=== PATIENT | male | born 1965 | race Hispanic/Latino ===

== ENCOUNTER 2024-09-06 23:55 | Inpatient (IN) | payer BC, MEDICAID ==
[~2024-09-06] VITALS: Ht 172.7 cm; Wt 79.7 kg
[2024-09-07] VITALS (8 sets, daily range): BP systolic 128–164; BP diastolic 66–83; PULSE 77–100; RESP 16–19; TEMP 97.6–97.9; O2SAT 98–100
[2024-09-07 01:11] LABS: BASOPHILS # (AUTO) 0.06 K/uL (0.00-0.20); BASOPHILS % (AUTO) 0.3 % (0.0-5.0); EOSINOPHILS # (AUTO) 0.02 K/uL (0.00-0.70); EOSINOPHILS % (AUTO) 0.1 % (0.0-8.0); HEMATOCRIT 24.6 % (42-54); IMMATURE GRANULOCYTE ABSOLUTE 0.32 K/uL (0-1); LYMPHOCYTES # (AUTO) 1.5 K/uL (1.0-4.8); LYMPHOCYTES % (AUTO) 6.9 % (21.0-51.0); MEAN CORPUSCULAR HEMOGLOBIN 27.3 pg (27.0-33.0); MEAN CORPUSCULAR HGB CONC 34.1 g/dL (32.0-36.0); MEAN CORPUSCULAR VOLUME 79.9 fL (79-99); MONOCYTES # (AUTO) 1.2 K/uL (0.1-1.0); MONOCYTES % (AUTO) 5.6 % (3.0-13.0); NEUTROPHILS # (AUTO) 18.7 K/uL (1.8-7.7); NEUTROPHILS % (AUTO) 85.6 % (40.0-77.0); PLATELET COUNT (AUTO) 544 K/uL (130-400); RED BLOOD CELL COUNT(AUTO) 3.08 MIL/uL (4.50-6.20); RED CELL DISTRIBUTION WIDTH 14.5 % (11.0-15.5); WHITE BLOOD COUNT (AUTO) 21.8 K/uL (4.8-10.8)
[2024-09-07 01:12] LABS: CREATININE 1.7 mg/dL (0.5-1.3); POTASSIUM 4.6 mmol/L (3.5-5.1)
[2024-09-07 02:19] LABS: ERYTHROCYTE SEDIMENTATION RATE 101 MM/HR (0-20)
[2024-09-07] MEDS: ondanSETRON 4MG INJ IVP ONE (02:35)
[2024-09-07] MEDS: INSULIN humuLIN R 100 UNIT/ML 3ML IV ONE (02:35)
[2024-09-07] MEDS: VANCOMYCIN KIT 1 GM/250 ML IV.KIT IV ONE (02:36)
[2024-09-07] MEDS: 0.9%NACL 1000ML 1,000 ML IV ONE (02:36)
[2024-09-07] MEDS: morPHINE 2 MG SYG IVP ONE (02:36)
[2024-09-07] MEDS ORDERED: DEXTROSE 50%-WATER 50 ML DISP.SYRIN IV PRN ×2 (03:30→22:30)
[2024-09-07] MEDS ORDERED: PoTASSium chloRIDE 20MEQ/100ML 100 ML IV PRN (03:30)
[2024-09-07] MEDS ORDERED: PoTASSium chl 10% ELIXIR 20MEQ 20 MEQ/15 ML UDCUP PO PRN (03:30)
[2024-09-07] MEDS ORDERED: VANCOMYCIN PROTOCOL PER PHARMACY IV PRN (03:30)
[2024-09-07] MEDS ORDERED: acetaMINOPHEN 325 MG TAB PO PRN ×2 (03:30)
[2024-09-07] MEDS ORDERED: GLUCAGON 1MG KIT 1 MG ML IM PRN ×2 (03:30→22:30)
[2024-09-07] MEDS: INSULIN humuLIN R 100 UNIT/ML 3ML SQ SCH (03:30)
[2024-09-07] MEDS ORDERED: PoTASSium chloRIDE 20MEQ ER 20 MEQ ERTAB PO PRN (03:30)
[2024-09-07] MEDS: 0.9%NACL 1000ML 1,000 ML IV SCH (04:05)
[2024-09-07] MEDS: ZOSYN 3.375GM+NS 50ML 50 ML IV SCH (04:05)
[2024-09-07] MEDS: ZOSYN 3.375GM +NS 50ML IVPB ONE (04:05)
[2024-09-07 05:55] LABS: APPEARANCE,URINE CLEAR (CLEAR); BILIRUBIN,URINE NEGATIVE (NEGATIVE); COLOR,URINE LIGHT-YELLOW (YELLOW); GLUCOSE, URINE (UA) >=1000 mg/dL (NEGATIVE); KETONES,URINE NEGATIVE (NEGATIVE); LEUKOCYTE ESTERASE ,URINE NEGATIVE Leu/uL (NEGATIVE); NITRATE,URINE NEGATIVE (NEGATIVE); OCCULT BLOOD,URINE SMALL (NEGATIVE); PH,URINE 5.5 (5.0-8.0); PROTEIN,URINE 50 mg/dL (NEGATIVE); UROBILINOGEN,URINE 0.2 mg/dL (0.2-1.0)
[2024-09-07 06:02] LABS: ADD UA MICROSCOPIC YES
[2024-09-07 06:17] LABS: MUCUS,URINE RARE LPF (None Seen)
[2024-09-07 07:04] LABS: BASOPHILS # (AUTO) 0.05 K/uL (0.00-0.20); BASOPHILS % (AUTO) 0.3 % (0.0-5.0); EOSINOPHILS # (AUTO) 0.12 K/uL (0.00-0.70); EOSINOPHILS % (AUTO) 0.7 % (0.0-8.0); HEMATOCRIT 25.7 % (42-54); LYMPHOCYTES # (AUTO) 1.7 K/uL (1.0-4.8); MEAN CORPUSCULAR HEMOGLOBIN 26.9 pg (27.0-33.0); MEAN CORPUSCULAR HGB CONC 32.7 g/dL (32.0-36.0); MEAN CORPUSCULAR VOLUME 82.4 fL (79-99); MONOCYTES # (AUTO) 0.9 K/uL (0.1-1.0); MONOCYTES % (AUTO) 4.9 % (3.0-13.0); NEUTROPHILS # (AUTO) 14.4 K/uL (1.8-7.7); NEUTROPHILS % (AUTO) 83.5 % (40.0-77.0); PLATELET COUNT (AUTO) 429 K/uL (130-400); RED BLOOD CELL COUNT(AUTO) 3.12 MIL/uL (4.50-6.20); RED CELL DISTRIBUTION WIDTH 14.7 % (11.0-15.5); WHITE BLOOD COUNT (AUTO) 17.3 K/uL (4.8-10.8)
[2024-09-07 07:13] LABS: BILIRUBIN,TOTAL 0.6 mg/dL (0.2-1.0); CREATININE 1.3 mg/dL (0.5-1.3); MAGNESIUM 1.8 mg/dL (1.80-2.40); POTASSIUM 3.9 mmol/L (3.5-5.1); TOTAL PROTEIN, SERUM 6.7 g/dL (6.0-8.3)
[2024-09-07] MEDS: FAMOTIDINE 20MG TAB PO SCH (09:55)
[2024-09-07] MEDS: morPHINE 2 MG SYG IV PRN (11:02)
[2024-09-07] MEDS: VANCOMYCIN 750MG VIAL IVPB SCH (12:46)
[2024-09-07] MEDS: GABApentin 100 MG CAPSULE PO SCH (14:00)
[2024-09-07] MEDS: simVASTatin 10 MG TABLET PO SCH (21:54)
[2024-09-08] VITALS (8 sets, daily range): BP systolic 135–164; BP diastolic 67–89; PULSE 67–83; RESP 18–20; TEMP 97.6–98.1; O2SAT 98–100
[2024-09-08 03:27] LABS: HEMOGLOBIN A1C 11.9 % (4.0-6.0)
[2024-09-08 03:34] LABS: ALBUMIN 1.9 g/dL (3.5-5.0); BILIRUBIN,TOTAL 0.3 mg/dL (0.2-1.0); CREATININE 1.3 mg/dL (0.5-1.3); MAGNESIUM 1.7 mg/dL (1.80-2.40); POTASSIUM 4.2 mmol/L (3.5-5.1); TOTAL PROTEIN, SERUM 6.4 g/dL (6.0-8.3)
[2024-09-08 03:37] LABS: HEMATOCRIT 25.6 % (42-54); MEAN CORPUSCULAR HEMOGLOBIN 27.2 pg (27.0-33.0); MEAN CORPUSCULAR HGB CONC 33.2 g/dL (32.0-36.0); MEAN CORPUSCULAR VOLUME 82.1 fL (79-99); RED BLOOD CELL COUNT(AUTO) 3.12 MIL/uL (4.50-6.20); RED CELL DISTRIBUTION WIDTH 14.6 % (11.0-15.5); WHITE BLOOD COUNT (AUTO) 10.1 K/uL (4.8-10.8)
[2024-09-08] MEDS: INSULIN humuLIN R 100 UNIT/ML 3ML SQ SCH (06:16)
[2024-09-08] MEDS: ASPIRIN 81 MG EC TAB PO SCH (09:42)
[2024-09-08] MEDS: LISINOPRIL 2.5 MG TABLET PO SCH (09:43)
[2024-09-08] MEDS ORDERED: LISI5TAB21 PO (18:47)
[2024-09-08] MEDS ORDERED: SIMV10TA97 PO (18:47)
[2024-09-08] MEDS ORDERED: METF-446 PO (18:47)
[2024-09-08] MEDS ORDERED: INSU3INS3 SQ (18:47)
[2024-09-08] MEDS ORDERED: INSU100C6 SQ (18:47)
[2024-09-08] MEDS ORDERED: MUPI15CR12 TP (18:47)
[2024-09-09] VITALS (9 sets, daily range): BP systolic 129–182; BP diastolic 70–91; PULSE 60–76; RESP 16–19; TEMP 96.6–98.3; O2SAT 100
[2024-09-09] MEDS: ondanSETRON 4MG INJ IV PRN (12:54)
[2024-09-10] VITALS (17 sets, daily range): BP systolic 120–163; BP diastolic 54–84; PULSE 58–97; RESP 15–19; TEMP 97.3–98.2; O2SAT 100
[2024-09-10] MEDS ORDERED: FENTanyl CITRate PF 50 MCG/1 ML 2ML VIAL ONE (06:59)
[2024-09-10] MEDS ORDERED: MIDAZOLAM HCL 1 MG/ML 2ML VIAL ONE (06:59)
[2024-09-10] MEDS ORDERED: proPOFol 10 MG/ML 20ML VIAL IV ONE ×2 (06:59→07:46)
[2024-09-10] MEDS: BUPIvacaine/PF 0.5% 30ML VIAL ONE (07:11)
[2024-09-10] MEDS: LIDOCAINE HCL 1% 20 ML VIAL ONE (07:11)
[2024-09-10] MEDS ORDERED: GLYCOPYRROLATE 0.2 MG/ML 5 ML VIAL ONE (08:05)
[2024-09-10 15:55] LABS: BASOPHILS # (AUTO) 0.03 K/uL (0.00-0.20); BASOPHILS % (AUTO) 0.3 % (0.0-5.0); EOSINOPHILS # (AUTO) 0.12 K/uL (0.00-0.70); EOSINOPHILS % (AUTO) 1.3 % (0.0-8.0); IMMATURE GRANULOCYTE ABSOLUTE 0.04 K/uL (0-1); LYMPHOCYTES # (AUTO) 1.7 K/uL (1.0-4.8); LYMPHOCYTES % (AUTO) 18.2 % (21.0-51.0); MEAN CORPUSCULAR HEMOGLOBIN 26.9 pg (27.0-33.0); MEAN CORPUSCULAR HGB CONC 31.3 g/dL (32.0-36.0); MEAN CORPUSCULAR VOLUME 85.8 fL (79-99); MONOCYTES # (AUTO) 0.4 K/uL (0.1-1.0); MONOCYTES % (AUTO) 4.5 % (3.0-13.0); NEUTROPHILS # (AUTO) 6.9 K/uL (1.8-7.7); NEUTROPHILS % (AUTO) 75.3 % (40.0-77.0); PLATELET COUNT (AUTO) 451 K/uL (130-400); RED BLOOD CELL COUNT(AUTO) 2.68 MIL/uL (4.50-6.20); RED CELL DISTRIBUTION WIDTH 14.7 % (11.0-15.5); WHITE BLOOD COUNT (AUTO) 9.1 K/uL (4.8-10.8)
[2024-09-10 16:04] LABS: CREATININE 1.1 mg/dL (0.5-1.3); MAGNESIUM 1.8 mg/dL (1.80-2.40)
[2024-09-10] MEDS: hydroMORPHone 0.5 MG SYG (0.5MG/0.5ML) IVP PRN (19:50)
[2024-09-11] VITALS (7 sets, daily range): BP systolic 145–166; BP diastolic 69–88; PULSE 62–96; RESP 16–18; TEMP 97.6–98.3; O2SAT 98–99
[2024-09-11 04:48] LABS: BASOPHILS # (AUTO) 0.04 K/uL (0.00-0.20); BASOPHILS % (AUTO) 0.4 % (0.0-5.0); EOSINOPHILS # (AUTO) 0.15 K/uL (0.00-0.70); EOSINOPHILS % (AUTO) 1.6 % (0.0-8.0); IMMATURE GRANULOCYTE ABSOLUTE 0.04 K/uL (0-1); LYMPHOCYTES # (AUTO) 2.1 K/uL (1.0-4.8); LYMPHOCYTES % (AUTO) 22.2 % (21.0-51.0); MEAN CORPUSCULAR HEMOGLOBIN 27.3 pg (27.0-33.0); MEAN CORPUSCULAR HGB CONC 32.3 g/dL (32.0-36.0); MEAN CORPUSCULAR VOLUME 84.6 fL (79-99); MONOCYTES # (AUTO) 0.5 K/uL (0.1-1.0); MONOCYTES % (AUTO) 5.6 % (3.0-13.0); NEUTROPHILS # (AUTO) 6.5 K/uL (1.8-7.7); NEUTROPHILS % (AUTO) 69.8 % (40.0-77.0); PLATELET COUNT (AUTO) 385 K/uL (130-400); RED CELL DISTRIBUTION WIDTH 14.5 % (11.0-15.5); WHITE BLOOD COUNT (AUTO) 9.3 K/uL (4.8-10.8)
[2024-09-11 04:56] LABS: BILIRUBIN,TOTAL 0.3 mg/dL (0.2-1.0); CREATININE 1.4 mg/dL (0.5-1.3); MAGNESIUM 1.7 mg/dL (1.80-2.40); POTASSIUM 4.3 mmol/L (3.5-5.1); TOTAL PROTEIN, SERUM 6.3 g/dL (6.0-8.3)
[2024-09-11 11:47] LABS: HEMATOCRIT 22.2 % (42-54)
[2024-09-11] MEDS: MAGNESIUM 2GM PREMIX 50ML 50 ML IV PRN (12:26)
[2024-09-11] MEDS: IRON sUCROse COMPLEX 100 MG/5 ML VIAL IV ONE (13:49)
[2024-09-11] MEDS: INSULIN GLARgine 100 UNITS/ML 10 ML VIAL SQ ONE (20:21)
[2024-09-12] VITALS (9 sets, daily range): BP systolic 153–181; BP diastolic 62–94; PULSE 65–81; RESP 18–20; TEMP 97.6–98.3; O2SAT 99
[2024-09-12 05:24] LABS: BASOPHILS # (AUTO) 0.03 K/uL (0.00-0.20); BASOPHILS % (AUTO) 0.4 % (0.0-5.0); EOSINOPHILS # (AUTO) 0.16 K/uL (0.00-0.70); EOSINOPHILS % (AUTO) 2.2 % (0.0-8.0); HEMATOCRIT 21.5 % (42-54); IMMATURE GRANULOCYTE ABSOLUTE 0.05 K/uL (0-1); LYMPHOCYTES # (AUTO) 1.6 K/uL (1.0-4.8); LYMPHOCYTES % (AUTO) 21.4 % (21.0-51.0); MEAN CORPUSCULAR HEMOGLOBIN 27.2 pg (27.0-33.0); MEAN CORPUSCULAR VOLUME 82.4 fL (79-99); MONOCYTES # (AUTO) 0.5 K/uL (0.1-1.0); MONOCYTES % (AUTO) 6.2 % (3.0-13.0); NEUTROPHILS # (AUTO) 5.1 K/uL (1.8-7.7); NEUTROPHILS % (AUTO) 69.1 % (40.0-77.0); PLATELET COUNT (AUTO) 376 K/uL (130-400); RED BLOOD CELL COUNT(AUTO) 2.61 MIL/uL (4.50-6.20); RED CELL DISTRIBUTION WIDTH 14.4 % (11.0-15.5); WHITE BLOOD COUNT (AUTO) 7.4 K/uL (4.8-10.8)
[2024-09-12 05:42] LABS: ALBUMIN 2.1 g/dL (3.5-5.0); BILIRUBIN,TOTAL 0.3 mg/dL (0.2-1.0); CREATININE 1.2 mg/dL (0.5-1.3); POTASSIUM 4.3 mmol/L (3.5-5.1); TOTAL PROTEIN, SERUM 6.6 g/dL (6.0-8.3)
[2024-09-12] MEDS: CYANOCOBALAMIN (VITAMIN B-12) 1,000 MCG TABLET PO SCH (09:55)
[2024-09-12] MEDS: FOLic ACID 1 MG TABLET PO SCH (09:56)
[2024-09-12] MEDS: IRON sUCROse COMPLEX 100 MG/5 ML VIAL IV ONE (11:07)
[2024-09-13 01:00] VITALS: BP 170/75
[2024-09-13] MEDS: hydrALAZine 20MG/ML VIAL IV PRN (01:32)
[2024-09-13 02:32] VITALS: BP 161/70
[2024-09-13 04:00] VITALS: BP 159/73; PULSE 90; RESP 19; TEMP 98.6
[2024-09-13 05:30] LABS: BASOPHILS # (AUTO) 0.03 K/uL (0.00-0.20); BASOPHILS % (AUTO) 0.3 % (0.0-5.0); EOSINOPHILS % (AUTO) 2.2 % (0.0-8.0); HEMATOCRIT 24.4 % (42-54); IMMATURE GRANULOCYTE ABSOLUTE 0.06 K/uL (0-1); LYMPHOCYTES # (AUTO) 1.8 K/uL (1.0-4.8); LYMPHOCYTES % (AUTO) 19.3 % (21.0-51.0); MEAN CORPUSCULAR HEMOGLOBIN 26.2 pg (27.0-33.0); MEAN CORPUSCULAR HGB CONC 31.1 g/dL (32.0-36.0); MEAN CORPUSCULAR VOLUME 84.1 fL (79-99); MONOCYTES # (AUTO) 0.5 K/uL (0.1-1.0); MONOCYTES % (AUTO) 5.6 % (3.0-13.0); NEUTROPHILS # (AUTO) 6.6 K/uL (1.8-7.7); NEUTROPHILS % (AUTO) 71.9 % (40.0-77.0); PLATELET COUNT (AUTO) 501 K/uL (130-400); RED CELL DISTRIBUTION WIDTH 14.8 % (11.0-15.5); WHITE BLOOD COUNT (AUTO) 9.2 K/uL (4.8-10.8)
[2024-09-13 05:53] LABS: ALBUMIN 2.5 g/dL (3.5-5.0); BILIRUBIN,TOTAL 0.4 mg/dL (0.2-1.0); CREATININE 1.5 mg/dL (0.5-1.3); MAGNESIUM 1.9 mg/dL (1.80-2.40); POTASSIUM 4.2 mmol/L (3.5-5.1); TOTAL PROTEIN, SERUM 7.6 g/dL (6.0-8.3)
[2024-09-13 08:00] VITALS: BP 171/82; PULSE 89; RESP 18; TEMP 97.7; O2SAT 99
[2024-09-13 09:14] VITALS: BP 153/74
[2024-09-13 12:00] VITALS: BP 170/82; PULSE 78; RESP 18; TEMP 97.8
[2024-09-14] MEDS ORDERED: FAMO20TA8 PO (22:33)
[2024-09-14] MEDS ORDERED: LISI2.5T13 PO (22:33)
[2024-09-14] MEDS ORDERED: GABA-529 PO (22:33)
[2024-09-14] MEDS ORDERED: LISI10TA24 PO (22:33)
[2024-09-14] MEDS ORDERED: ONDA-104 PO (22:33)
[2024-09-14] MEDS ORDERED: LACT10SO75 PO (22:33)
[2024-09-14] MEDS ORDERED: FOLI1 PO (22:33)
[2024-09-14] MEDS ORDERED: INSU3INS3 SQ (22:33)
[2024-09-14] MEDS ORDERED: ACET-2247 PO (22:33)
[2024-09-14] MEDS ORDERED: FERS325 PO (22:33)
[2024-09-14] MEDS ORDERED: GLUC1KIT IJ (22:33)
[2024-09-14] MEDS ORDERED: SIMV10TA97 PO (22:33)
[2024-09-14] MEDS ORDERED: ASPI-1443 PO (22:33)
[2024-09-14] MEDS ORDERED: PIPE3.3772 IV (22:33)
[2024-09-14] MEDS ORDERED: CYAN100099 PO (22:33)
== END 2024-09-13 16:25 | DRG 854 ==
LOC: EDH 23:55 → EDHIP 09-07 03:28 → 3AH 09-07 04:08
PROVIDERS: ADMIT Internal Medicine; ATTEND Internal Medicine
PROC: 0Y6M0ZB Detachment at Right Foot, Partial 2nd Ray, Open Approach (ICD-10-PCS; 2024-09-10)
PROC: 0Y6M0ZC Detachment at Right Foot, Partial 3rd Ray, Open Approach (ICD-10-PCS; 2024-09-10)
PROC: 0Y6M0ZD Detachment at Right Foot, Partial 4th Ray, Open Approach (ICD-10-PCS; 2024-09-10)
PROC: 0Y6M0ZF Detachment at Right Foot, Partial 5th Ray, Open Approach (ICD-10-PCS; 2024-09-10)
PROC: 0Y6M0Z9 Detachment at Right Foot, Partial 1st Ray, Open Approach (ICD-10-PCS; principal; 2024-09-10 07:00)
DX: A41.9 Sepsis, unspecified organism (principal); L02.611 Cutaneous abscess of right foot; N17.9 Acute kidney failure, unspecified; M86.8X7 Other osteomyelitis, ankle and foot; L03.115 Cellulitis of right lower limb; L97.518 Non-pressure chronic ulcer of other part of right foot with other specified severity; E11.65 Type 2 diabetes mellitus with hyperglycemia; D75.839 Thrombocytosis, unspecified; E11.621 Type 2 diabetes mellitus with foot ulcer; E11.628 Type 2 diabetes mellitus with other skin complications; F41.9 Anxiety disorder, unspecified; D50.9 Iron deficiency anemia, unspecified; I10 Essential (primary) hypertension; E11.42 Type 2 diabetes mellitus with diabetic polyneuropathy; E11.51 Type 2 diabetes mellitus with diabetic peripheral angiopathy without gangrene; E11.69 Type 2 diabetes mellitus with other specified complication; E78.00 Pure hypercholesterolemia, unspecified; I25.10 Atherosclerotic heart disease of native coronary artery without angina pectoris; Z59.71 Insufficient health insurance coverage; Z79.4 Long term (current) use of insulin; Y92.009 Unspecified place in unspecified non-institutional (private) residence as the place of occurrence of the external cause; Z83.3 Family history of diabetes mellitus; Z89.421 Acquired absence of other right toe(s); Z89.422 Acquired absence of other left toe(s); Z89.439 Acquired absence of unspecified foot; Z95.1 Presence of aortocoronary bypass graft
CPT/HCPCS: 36415; 73630; 73718; 80048; 80053; 80061; 80202; 81001; 82306; 82607; 82728; 82746; 82948; 83036; 83540; 83550; 83605; 83735; 84145; 85014; 85018; 85025; 85027; 85651; 86850; 86900; 86901; 87040; 87070; 87076; 88305; 88311; 93005; 96365; 96375; 96376; G0378; J0360; J1171; J1610; J1756; J1815; J2250; J2270; J2405; J2543; J2704; J3010; J3370; J3475; J3490; J7030; J7070; A4215; A4216; A4221; A4222; A4223; A4649; A6446; J0665

== ENCOUNTER 2025-07-01 08:12 | Emergency (ER) | payer OTHER, MEDICAID ==
[~2025-07-01] VITALS: Ht 172.7 cm; Wt 68.0 kg
[~2025-07-01 08:12] MED LIST: ACET-2247 PO; ASPI-1443 PO; CYAN-37 PO; FAMO20TA8 PO; FERS325 PO; FOLI1 PO; GABA-529 PO; GLUC1VIA20 IJ; INSU3INS3 SQ; LACT10SO75 PO; LISI10TA24 PO; ONDA-104 PO; PIPE3.3772 IV; SIMV10TA97 PO
--- NOTE | 2025-07-01 08:36 | NUR ---
PATIENT MADE AWARE OF URINE SPECIMEN. URINAL PROVIDED.
[2025-07-01 08:59] LABS: IMMATURE GRANULOCYTE ABSOLUTE 0.03 K/uL (0-1); NUCLEATED RED BLOOD CELLS 0.0 % (0.0-0.19); PLATELET COUNT (AUTO) 365 K/uL (130-400); RED BLOOD CELL COUNT(AUTO) 4.20 MIL/uL (4.50-6.20); RED CELL DISTRIBUTION WIDTH 13.1 % (11.0-15.5); WHITE BLOOD COUNT (AUTO) 9.8 K/uL (4.8-10.8)
[2025-07-01 09:07] LABS: CREATININE 1.2 mg/dL (0.5-1.3); GLOMERULAR FILTR. RATE CALC 71.0 mL/min (>90); GLUCOSE,RANDOM 306.0 mg/dL (70-105); SODIUM SERUM 137.0 mmol/L (136-145); UREA NITROGEN, BLOOD 14.0 mg/dL (7-18)
[2025-07-01 09:12] LABS: CREATINE KINASE, TOTAL 73.0 U/L (21-232)
[2025-07-01 09:36] LABS: ASPARTATE AMINOTRANSFERASE 17.0 U/L (10-37); TOTAL PROTEIN, SERUM 6.7 g/dL (6.0-8.3)
[2025-07-01] MEDS: 0.9%NACL 1000ML 1,000 ML IV ONE (10:04)
--- NOTE | 2025-07-01 10:19 | HMCIMG ---
EXAM: CR Chest, 1 View. CLINICAL HISTORY: CHEST PAIN COMPARISON: None provided. FINDINGS: LUNGS: The lungs show no infiltrate or other acute finding. PLEURAL SPACES: No pleural effusion or pneumothorax. MEDIASTINUM: Prior sternotomy. The cardiomediastinal silhouette is within normal limits. BONES: No aggressive appearing osseous lesion seen. IMPRESSION: No acute cardiopulmonary pathology is evident. /[place]
--- NOTE | 2025-07-01 11:13 | EKG ---
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
[2025-07-01] MEDS ORDERED: ONDA-243 PO (13:23)
--- NOTE | 2025-07-01 13:23 | ERN ---
ED Note History of Present Illness Stated Complaint: CHEST PAIN Chief Complaint: Chest Pain Time Seen by MD: 08:16 Dictation: 59 y/o M with chest pain on/off over the past few days, also had some vomiting. Pt reports sharp pain 05/07. Allergies: Coded Allergies: No Known Drug Allergies (Unverified Allergy, Unknown, 09/07/24) Home Meds Reported Medications Xhnjftomwreb-Fgei-Aaatgkas,Iso (Zosyn 3.375 gm Galaxy Bag) 3.375 Gram/50 Ml Froz.piggy, 3.375 GM IV TID, PIGGYBACK 09/14/24 Ondansetron HCl (Ondansetron HCl) 4 Mg Tablet, 1 TAB PO Q6HPRN PRN for nausea/vomiting, #10 TAB 0 Refills 09/14/24 Acetaminophen (Tylenol) 325 Mg Tablet, 1 TAB PO Q4HPRN PRN for pain or fever for 5 Days, #30 TAB 0 Refills 09/14/24 Simvastatin (Simvastatin) 10 Mg Tablet, 1 TAB PO HS for 30 Days, #30 TAB 0 Refills 09/14/24 Lisinopril (Lisinopril) 10 Mg Tablet, 1 TAB PO DAILY for 30 Days, #30 TAB 0 Refills 09/14/24 Insulin Glargine,Hum.rec.anlog (Lantus Solostar) 100 Unit/Ml (3 Ml) Insuln.pen, 25 UNIT SQ HS for 30 Days, #5 ML 0 Refills 09/14/24 Glucagon,Human Recombinant (Glucagon,Human Recombinant Kit) 1 Mg Kit, 1 MG IJ DAILY PRN for HYPOGLYCEMIA, KIT 09/14/24 Gabapentin (Gabapentin) 100 Mg Capsule, 1 CAP PO TID for 30 Days, #90 CAP 0 Refills 09/14/24 Folic Acid (Folvite) 1 Mg Tab, 1 TAB PO DAILY for 30 Days, #30 TAB 0 Refills 09/14/24 Ferrous Sulfate (Ferrous Sulfate) 325 Mg (65 Mg Iron) Ectab, 1 TAB PO DAILY for 30 Days, #30 TAB 0 Refills 09/14/24 Famotidine (Famotidine) 20 Mg Tablet, 20 MG PO DAILY, TAB 09/14/24 Lactulose (Enulose) 10 Gram/15 Ml Solution, 30 ML PO DAILY for 30 Days, #480 ML 0 Refills 09/14/24 Cyanocobalamin (Vitamin B-12) (B-12) 1,000 Mcg Tablet, 1 TAB PO DAILY for 30 Days, #30 TAB 0 Refills 09/14/24 Aspirin (Aspirin EC) 81 Mg Tablet.dr, 1 TAB PO DAILY for 30 Days, #30 TAB 0 Refills 09/14/24 Past Medical History Past Medical History: Anemia, CAD, Diabetes-Type II, High Cholesterol, Heart Disease, Hypertension, ND, Renal Failure, Other Additional Past Medical Hx: BACK PAIN Surgical History: CABG, Other Surgical History Other: BILATERAL TOE AMPUTATIONS Family History: Negative Social History: Drugs Review of System Dictation Constitutional: Negative for fever,chills, and weight loss Eyes: Negative for injury, pain,redness, and discharge ENT: Negative for injury,pain or swelling Cardiovascular:per HPI Respiratory: Negative for shortness of breath, cough, and wheezing, Abdomen/GI: Negative for abdominal pain, positive for vomiting Back: Negative for injury and pain : Negative for injury, bleeding and discharge MS/Extremity: Negative for injury and deformity Skin: Negative for rash, and discoloration Neuro: Negative for headache, weakness, numbness, tingling, and seizure Psych: Negative for suicide ideation, homicidal ideation, and hallucinations Initial Vital Sign VS Vital Signs Date Time Temp Pulse Resp B/P (MAP) Pulse Ox O2 Delivery O2 Flow Rate FiO2 07/01/25 08:13 97.9 87 14 123/78 100 Room Air 0 07/01/25 09:28 21 Physical Exam Dictation General: awake, alert, NAD Head/Face: Normocephalic, atraumatic Eyes: PERRL, EOMI, vision at baseline ENT: oral cavity clear, TMs clear, no signs of infection Neck: Trachea midline, supple, no nuchal rigidity Cardiovascular: RRR, normal S1/S2, No MRGs, no JVD Respiratory: CTAB, no respiratory distress, No rales or wheezes Abdomen: Soft, non-tender, non-distended, normal bowel sounds, no guarding or rebound. Skin: Warm, dry, normal turgor, no rash MS/Extremity: Pulses equal, no cyanosis, neurovascular intact, FROM Neuro: COAx4, GCS 15, strength 5/5, CN 2-12 intact, normal cerebellar exam, normal gait, Psych: Normal behavior, mood, and affect normal Results (Laboratory/Radiology) Laboratory/Radiology Laboratory Tests Test 07/01/25 08:53 07/01/25 12:14 White Blood Count 9.8 K/uL (4.8-10.8) Red Blood Count 4.20 MIL/uL (4.50-6.20) L Hemoglobin 12.6 g/dL (14.0-18.0) L Hematocrit 35.5 % (42-54) L Mean Corpuscular Volume 84.5 fL (79-99) Mean Corpuscular Hemoglobin 30.0 pg (27.0-33.0) Mean Corpuscular Hemoglobin Concent 35.5 g/dL (32.0-36.0) Red Cell Distribution Width 13.1 % (11.0-15.5) Platelet Count 365 K/uL (130-400) Mean Platelet Volume 9.3 fL (7.5-10.5) Immature Granulocyte % (Auto) 0.3 % (0-1) Neutrophils (%) (Auto) 75.9 % (40.0-77.0) Lymphocytes (%) (Auto) 15.9 % (21.0-51.0) L Monocytes (%) (Auto) 6.0 % (3.0-13.0) Eosinophils (%) (Auto) 1.4 % (0.0-8.0) Basophils (%) (Auto) 0.5 % (0.0-5.0) Neutrophils # (Auto) 7.4 K/uL (1.8-7.7) Lymphocytes # (Auto) 1.6 K/uL (1.0-4.8) Monocytes # (Auto) 0.6 K/uL (0.1-1.0) Eosinophils # (Auto) 0.14 K/uL (0.00-0.70) Basophils # (Auto) 0.05 K/uL (0.00-0.20) Absolute Immature Granulocyte (auto 0.03 K/uL (0-1) Nucleated Red Blood Cells 0.0 % (0.0-0.19) Sodium Level 137 mmol/L (136-145) Potassium Level 3.7 mmol/L (3.5-5.1) Chloride Level 100 mmol/L (101-111) L Carbon Dioxide Level 32 mmol/L (21-32) Blood Urea Nitrogen 14 mg/dL (7-18) Creatinine 1.2 mg/dL (0.5-1.3) Glomerular Filtration Rate Calc 71 mL/min (>90) Random Glucose 306 mg/dL (70-105) H Total Calcium 9.1 mg/dL (8.5-10.1) Total Bilirubin 0.9 mg/dL (0.2-1.0) Direct Bilirubin 0.2 mg/dL (0.0-0.3) Aspartate Amino Transf (AST/SGOT) 17 U/L (10-37) Alanine Aminotransferase (ALT/SGPT) 18 U/L (12-78) Alkaline Phosphatase 113 U/L (50-136) Total Creatine Kinase 73 U/L (21-232) Troponin I High Sensitivity 23 ng/L (4-75) 24 ng/L (4-75) Total Protein 6.7 g/dL (6.0-8.3) Albumin 3.5 g/dL (3.5-5.0) Lipase 46 U/L (16-77) Labs Reviewed?: Yes EKG Comment: HR 68. NSR, LAFB, no STEMi ED Course ED Course Orders Procedure Category Date Status Time Vital Signs Per CPOE 07/01/25 Transmitted Routine 08:12 Chest 1vw RAD 07/01/25 Resulted 08:12 12 Lead Ekg Tracing- EKG 07/01/25 Complete Technical 08:12 Oxygen By Nc/Pulse Ox CPOE 07/01/25 Transmitted 08:12 Maintain Iv CPOE 07/01/25 Transmitted 08:12 Iv Insertion CPOE 07/01/25 Transmitted 08:12 Cardiac Monitoring CPOE 07/01/25 Transmitted 08:12 Pulse Oximetry With CPOE 07/01/25 Transmitted Vs And Prn 08:12 Cbc With Differential LAB 07/01/25 Complete 08:12 Activity: Br W/Brp CPOE 07/01/25 Transmitted With Assist 08:12 Creatine Kinase, Total LAB 07/01/25 Complete 08:12 Troponin I High LAB 07/01/25 Complete Sensitivity 08:12 Urinalysis Profile LAB 07/01/25 Logged 08:12 Basic Metabolic Panel LAB 07/01/25 Complete 08:12 Hepatic Function Panel LAB 07/01/25 Complete 08:16 Lipase LAB 07/01/25 Complete 08:16 Ondansetron 4mg Inj PHA 07/01/25 Complete (Zofran 4mg Inj) 10:00 Morphine 4mg Syg PHA 07/01/25 Complete (Morphine 4mg Syg) 10:00 0.9%Nacl 1000ml (Ns PHA 07/01/25 Complete 1000ml) 10:00 Troponin I High LAB 07/01/25 Complete Sensitivity 11:34 Current Medications Medications (Trade) Dose Ordered Sig/Nicci Route PRN Reason Start Time Stop Time Status Last Admin Dose Admin Morphine Sulfate (morPHINE 4MG SYG) 4 mg ONCE ONCE IVP 07/01/25 10:00 07/01/25 10:01 DC 07/01/25 10:04 Ondansetron HCl (zoFRAN 4MG INJ) 4 mg ONCE ONCE IVP 07/01/25 10:00 07/01/25 10:01 DC 07/01/25 10:03 Sodium Chloride 1,000 ml @ 0 mls/hr ONCE ONCE IV 07/01/25 10:00 07/01/25 10:01 DC 07/01/25 10:04 Vital Signs Date Time Temp Pulse Resp B/P (MAP) Pulse Ox O2 Delivery O2 Flow Rate FiO2 07/01/25 11:46 65 14 158/80 100 Room Air* 0 21 07/01/25 09:28 97.9 76 14 165/81 100 Room Air* 0 21 07/01/25 08:13 97.9 87 14 123/78 100 Room Air 0 HEART Score Response (Comments) Value Age: 45-65yrs (+1) 1 Risk Factors: 1-2 risk factors (+1) 1 Total 2 Medical Decision Making MDM MDM: Differential diagnosis: Rationale: Tests considered and ordered secondary to shared decision making include: Previous outside records reviewed: Old ER visits. Risk of complication and/or morbidity or mortality of patient management: None Medications-Per medication reconciliation Need for hospitalization: Patient does not meet criteria for hospitalization. Need for emergency major/minor surgery: No There are no social concerns with this patient. Prescription drug management Prescriptions will include symptomatic care Patient's prior external medical records from other ER visits were reviewed by me as indicated. Prior testing and results from previous visits were reviewed. Prior tests were taken into account with medical decision making and resource utilization, independent historian/historians were used to obtain complete medical history. I independently interpreted the test that were performed, results were reviewed by me and considered findings on radiology if ordered. Medical management and examination interpretation discussions were had by me with other qualified healthcare professionals as indicated for the patient's care. 59 y/ o M with CP, stable exam and workup negative, improved with meds, stable for DC with negative tropI x2 , HEART score 3 DX & DISP Disposition: Discharge Departure Impression: Primary Impression: Chest pain Condition: Stable Scripts Ondansetron (Ondansetron Odt) 4 Mg Tab.rapdis 4 MG PO BID for vomiting for 5 Days, #10 TAB Prov: FRANKI AUSTIN MD 07/01/25 Referrals: IVA DUFF MD (PCP) FRANKI AUSTIN MD Jul 01, 2025 13:23
[2025-07-01 13:58] VITALS: BP 157/76; PULSE 64; RESP 15; TEMP 97.9; O2SAT 99
--- NOTE | 2025-07-01 13:59 | NUR ---
[facility] [phone]
== END 2025-07-01 14:04 | disposition home or self-care (01) ==
LOC: EDH 08:12
DX: R07.89 Other chest pain (principal); E11.9 Type 2 diabetes mellitus without complications; E78.00 Pure hypercholesterolemia, unspecified; I10 Essential (primary) hypertension; I25.10 Atherosclerotic heart disease of native coronary artery without angina pectoris; Z79.82 Long term (current) use of aspirin; Z79.899 Other long term (current) drug therapy; Z95.1 Presence of aortocoronary bypass graft
CPT/HCPCS: 99285; 96374; 71045; 96361; 96375; 82550; 80076; 84484 ×2; 80048; 83690; 85025; 36415; 93005; J7030; J2405; J2270